=== PATIENT | male | born 1975 | race Hispanic/Latino ===

== ENCOUNTER → 2019-10-15 | Day surgery (SDC) | payer OTHER ==
[~2019-10-15] MED LIST: FENTANYL CITRATE/PF 100MCG/2 ML INJ ONE; GLUCAGON FOR INJ 1 MG VIAL ONE; HYOSCYAMINE 0.125 MG TAB ONE; MIDAZOLAM HCL 2 MG/2 ML VIAL ONE; PROPOFOL IV EMULSION 10 MG/ML 50 ML VIAL ONE
[2019-10-15 09:30] VITALS: BP 120/79
--- NOTE | 2019-10-15 11:40 | Operative Report ---
DATE OF PROCEDURE: 10/15/2019 SURGEON: Murphy Lyons MD PROCEDURE: Colonoscopy with polypectomy and hemoclipping and biopsies. INDICATION FOR COLONOSCOPY: Abdominal pain. MEDICATIONS: The patient was done under MAC, please see anesthesiologist's note. PROCEDURE IN DETAIL: With the patient in left lateral decubitus position, a flexible fiberoptic Olympus colonoscope was inserted into the rectum with ease and advanced all the way to the cecum. Ileocecal valve was intubated and the scope was advanced into the terminal ileum. Biopsies were obtained. The scope was then withdrawn back into the colon. It was then withdrawn slowly and mucosa overlying the ascending appeared to be within normal limits. An approximately 5 mm polyp was noted in the distal transverse colon and that was removed per hot biopsy forceps and site was hemoclipped. The descending and sigmoid as well as the rectum appeared to be within normal limits. The scope was then retroflexed into the distal rectum and small internal hemorrhoids were noted, none of which was actively bleeding. The scope was then straightened out, it was subsequently withdrawn. ? minute nodule was noted in the prostate on rectal exam. The patient tolerated the procedure well. IMPRESSION: 1. Transverse colon polyp, hot biopsied. 2. Internal hemorrhoids, none actively bleeding. 3. ? minute nodule of prostate. PLAN: Follow up histology. Initiate high-fiber, low-fat diet. Initiate high-fiber supplement. Check PSA. Start Bentyl 10 mg one p.o. t.i.d. The patient might benefit from a followup colonoscopy in 5 years. Murphy Lyons MD [facility] [place][id number]
== END | disposition home or self-care (01) ==
LOC: OR 06:43
PROVIDERS: ATTEND Internal Medicine Gastroenterology
DX: D12.3 Benign neoplasm of transverse colon (principal); N40.2 Nodular prostate without lower urinary tract symptoms; K63.5 Polyp of colon; K64.8 Other hemorrhoids; R12 Heartburn; R19.5 Other fecal abnormalities; Z68.29 Body mass index [BMI] 29.0-29.9, adult; R03.0 Elevated blood-pressure reading, without diagnosis of hypertension; Z01.810 Encounter for preprocedural cardiovascular examination
CPT/HCPCS: 45378; 45380; 84152; 93005; J1610; J2250; J3010

== ENCOUNTER → 2019-12-31 | Outpatient (CLI) | payer OTHER ==
--- NOTE | 2020-01-01 11:56 | Diagnostic Imaging Report ---
TECHNIQUE: MRI of the pelvis WITHOUT intravenous contrast. INDICATION: 44-year-old man with right lower quadrant abdominal pain. COMPARISON: None. FINDINGS: ABSENCE OF INTRAVENOUS CONTRAST DECREASES SENSITIVITY FOR DETECTION OF FOCAL LESIONS AND VASCULAR PATHOLOGY. PELVIC ORGANS/BLADDER: 1 cm T1/T2 hyperintense structure in the left seminal vesicle likely represents a debris-containing cyst. Prostate is grossly unremarkable. Bladder is unremarkable. PERITONEUM/RETROPERITONEUM: No free air or fluid. LYMPH NODES: No lymphadenopathy. VESSELS: Unremarkable. GI TRACT: No distention or wall thickening. BONES AND SOFT TISSUES: Bones are unremarkable. Tiny fat-containing left inguinal hernia. IMPRESSION: No acute abnormalities in the pelvis on this noncontrast MRI. Tiny fat-containing left inguinal hernia. Suspected 1 cm debris-containing cyst in the left seminal vesicle. Signed by: David Franks MD on 01/01/2020 11:52 AM
== END ==
LOC: MRI 07:41
PROVIDERS: ATTEND Surgery
DX: R10.31 Right lower quadrant pain (principal); K40.90 Unilateral inguinal hernia, without obstruction or gangrene, not specified as recurrent; N50.89 Other specified disorders of the male genital organs
CPT/HCPCS: 72195